=== PATIENT | male | born 1990 | race Caucasian/White ===

== ENCOUNTER 2018-07-12 19:38 | Emergency (ER) | payer BC ==
[2018-07-12 20:01] VITALS: BP 149/95
--- NOTE | 2018-07-12 20:27 | EDM.PDOC ---
ED HPI GENERAL MEDICAL PROBLEM - General Chief Complaint: ENT Problem Stated Complaint: TOOTHACHE Time Seen by Provider: 07/12/18 19:39 Source of Information: Reports: Patient, RN Notes Reviewed History Limitations: Reports: No Limitations - History of Present Illness INITIAL COMMENTS - FREE TEXT/NARRATIVE: Patient is a 27-year-old male who presents to the ED for the evaluation of tooth pain. The patient notes that this has been present since roughly Wednesday. He states that it got worse this morning at around 2 AM. He was evaluated by the dentist today, and was started on amoxicillin 500 mg 3 times a day. He does have an appointment with an oral surgeon on Wednesday to remove the bothersome tooth and his 4 wisdom teeth as well. The patient has been taking maximum amounts of ibuprofen and Tylenol and this is not providing much relief. He states that he has some shooting pains into his right ear as well. He denies any headache, sinus pressure or pain, sore throat or other feelings of being unwell. Right Lower Tooth/Teeth Pain Score (Numeric/FACES): 10 - Related Data Allergies Allergy/AdvReac Type Severity Reaction Status Date / Time No Known Allergies Allergy Verified 07/12/18 20:01 Home Meds: Home Meds Amoxicillin 500 mg PO TID 07/12/18 [History] Past Medical History - Past Health History Medical/Surgical History: Denies Medical/Surgical History - Past Surgical History Musculoskeletal Surgical History: Reports: Other (See Below) Social & Family History - Family History Cardiac: Reports: Other (See Below) Other Cardiac Family History: sisters have heart problems - Tobacco Use Smoking Status *Q: Never Smoker - Caffeine Use Caffeine Use: Reports: Coffee, Energy Drinks, Soda, Tea - Recreational Drug Use Recreational Drug Use: No ED ROS ENT - Review of Systems Review Of Systems: See Below Constitutional: Denies: Fever, Chills HEENT: Reports: Dental Pain, Ear Pain (shootin pains.). Denies: Throat Pain Respiratory: Reports: No Symptoms Cardiovascular: Reports: No Symptoms Endocrine: Reports: No Symptoms GI/Abdominal: Reports: No Symptoms : Reports: No Symptoms Musculoskeletal: Reports: No Symptoms Skin: Reports: No Symptoms Neurological: Reports: No Symptoms Psychiatric: Reports: No Symptoms Hematologic/Lymphatic: Reports: No Symptoms Immunologic: Reports: No Symptoms ED EXAM, ENT - Physical Exam Exam: See Below Exam Limited By: No Limitations General Appearance: Alert, WD/WN, No Apparent Distress Ears: Normal External Exam, Normal Canal, Hearing Grossly Normal, Normal TMs Nose: Normal Inspection, Normal Mucousa, No Blood Mouth/Throat: Normal Inspection, Normal Gums, Normal Lips, Normal Oropharynx, Dental Pain (noted to R back molar, his wisdom teeth are growing in sideways in a frontward fashion. There is). No: Throat Pain, Throat Swelling, Tongue Swelling, Tonsillar Swelling, Trismus Head: Atraumatic, Normocephalic Neck: Normal Inspection Respiratory/Chest: No Respiratory Distress, Lungs Clear, Normal Breath Sounds, No Accessory Muscle Use, Chest Non-Tender Cardiovascular: Normal Peripheral Pulses, Regular Rate, Rhythm, No Murmur Extremities: Normal Inspection, Normal Capillary Refill Neurological: Alert, Oriented, Normal Cognition, No Motor/Sensory Deficits Psychiatric: Normal Affect, Normal Mood Skin: Warm, Dry, Intact, Normal Color, No Rash Course - Vital Signs Last Recorded V/S: Last Vital Signs Temp 98.1 F 07/12/18 19:58 Pulse 67 07/12/18 19:58 Resp 18 07/12/18 19:58 BP 149/95 H 07/12/18 19:58 Pulse Ox 98 07/12/18 19:58 - Re-Assessments/Exams Free Text/Narrative Re-Assessment/Exam: 07/12/18 20:32 Patient presents to the ED for the evaluation of tooth pain. He was started on amoxicillin today via his dental provider. I have provided him with a few tablets of [place] 5/325 to get through until he sees his oral surgeon on Wednesday. He will get 5 teeth removed on that date. The patient is to take the amoxicillin as previously directed. He was made aware that it does take a good 24-48 hours this medication to provide him good benefit. He is understanding of this. Departure - Departure Time of Disposition: 20:22 Disposition: Home, Self-Care 01 Condition: Fair Clinical Impression: Pain, dental - Discharge Information *PRESCRIPTION DRUG MONITORING PROGRAM REVIEWED*: No *COPY OF PRESCRIPTION DRUG MONITORING REPORT IN PATIENT ABRAHAN: No Instructions: Dental Extraction, [id number] Referrals: PCP,None [Primary Care Provider] - Forms: ED Department Discharge Additional Instructions: You have been evaluated in the ED for your dental pain. You have been given a prescription for hydrocodone/acetaminophen 5/325. Please take 1-2 tabs every 6h as needed for pain. Your pain will likely get better when the antibiotics have an adequate time to kick in. (roughly 24-48 hrs of initiation) Please take the Amoxicillin as directed. Aleve provides pretty good pain relief from dental issues. You can take 1-2 tabs of Aleve every 12 hrs in conjunction with this. Do not take more than 4000mg Tylenol or 3200mg Ibuprofen in a 24 hr time span. Please return to the ED if your symptoms change or worsen.
== END 2018-07-12 20:36 | disposition home or self-care (01) ==
LOC: JD.ED 19:38
DX: K08.89 Other specified disorders of teeth and supporting structures (principal)
CPT/HCPCS: 99282; 99283